=== PATIENT | female | born 1965 | race American Indian/Alaskan Native ===

== ENCOUNTER 2016-10-06 15:24 | Emergency (ER) | payer SELFPAY ==
[2016-10-06 18:07] LABS: Basophils % (Auto) 0.6 % (0.0-1.8); Eosinophils % (Auto) 2.2 % (0.0-4.3); Hematocrit 30.9 % (30.3-42.9); Hemoglobin 9.8 gm/dl (10.1-14.3); Mean Corpuscular HGB Conc 32 % (30-34); Mean Corpuscular Hemoglobin 27 pg (28-32); Mean Corpuscular Volume 84 fl (79-97); Platelet Count 294 K/mm3 (140-440); Red Blood Count 3.69 M/mm3 (3.65-5.03); Red Cell Distribution Width 13.8 % (13.2-15.2); White Blood Count 5.4 K/mm3 (4.5-11.0)
--- NOTE | 2016-10-06 20:41 | Emergency Department Report ---
ED ENT HPI - General Chief complaint: Nosebleed Stated complaint: NOSE BLEEDS Time Seen by Provider: 10/06/16 20:18 Source: patient Mode of arrival: Ambulatory Limitations: No Limitations - History of Present Illness Initial comments: 50-year-old female past medical history obesity, GERD, anemia chronic iron deficiency presents with complaint of 3 weeks of nasal congestion, nasal drainage, sinus congestion. Patient states that for the last 2 days she has had intermittent episodes of nose bleeding. Denies any fever or chills denies any sore throat no earache denies any headache denies any generalized weakness. Patient is awake alert and oriented 3 does not appear to be in acute distress speaking in full sentences no difficulty breathing no audible stridor or wheezing. Patient denies any chest pain palpitations nausea vomiting no shortness of breath no abdominal pain denies any dizziness or headache. Patient states that yesterday she had intermittent nosebleeding for a few hours. On my exam and during interview patient is not actively bleeding. She states that yesterday she use Afrin nasal spray 2 indicate her nosebleeding. Patient states she does not currently have primary doctor and has not been on any medicines otherwise other than TheraFlu and Excedrin which has been taking [id number] for her sinus congestion. MD complaint: epistaxis Onset/Timin -: days(s) Severity: moderate Associated Symptoms: rhinorrhea - Related Data Previous Rx's Medication Instructions Recorded Last Taken Type Amoxicillin/K Clav Tab [Augmentin 1 tab PO Q12HR #20 tab 10/06/16 Unknown Rx 875 mg] Azelastine 0.1% (Nf) [Astelin (Nf)] 137 mcg NS QDAY PRN #1 bottle 10/06/16 Unknown Rx Docusate Sodium [Colace CAP] 100 mg PO BID PRN #30 capsule 10/06/16 Unknown Rx Ferrous Sulfate [Feosol 325 MG tab] 325 mg PO QDAY #30 tablet 10/06/16 Unknown Rx Fluticasone [Flonase] 1 spray NS QDAY PRN #1 bottle 10/06/16 Unknown Rx Oxymetazoline 0.05% [Afrin] 1 spray NS PRN PRN #1 bottle 10/06/16 Unknown Rx Allergies Allergy/AdvReac Type Severity Reaction Status Date / Time No Known Allergies Allergy Verified 10/06/16 16:34 ED Dental HPI - General Chief complaint: Nosebleed Stated complaint: NOSE BLEEDS Time Seen by Provider: 10/06/16 20:18 Source: patient Mode of arrival: Ambulatory Limitations: No Limitations - Related Data Previous Rx's Medication Instructions Recorded Last Taken Type Amoxicillin/K Clav Tab [Augmentin 1 tab PO Q12HR #20 tab 10/06/16 Unknown Rx 875 mg] Azelastine 0.1% (Nf) [Astelin (Nf)] 137 mcg NS QDAY PRN #1 bottle 10/06/16 Unknown Rx Docusate Sodium [Colace CAP] 100 mg PO BID PRN #30 capsule 10/06/16 Unknown Rx Ferrous Sulfate [Feosol 325 MG tab] 325 mg PO QDAY #30 tablet 10/06/16 Unknown Rx Fluticasone [Flonase] 1 spray NS QDAY PRN #1 bottle 10/06/16 Unknown Rx Oxymetazoline 0.05% [Afrin] 1 spray NS PRN PRN #1 bottle 10/06/16 Unknown Rx Allergies Allergy/AdvReac Type Severity Reaction Status Date / Time No Known Allergies Allergy Verified 10/06/16 16:34 ED Review of Systems ROS: Stated complaint: NOSE BLEEDS Other details as noted in HPI Constitutional: denies: chills, fever Eyes: denies: eye pain, eye discharge, vision change ENT: epistaxis (patient states she has had intermittent nosebleeding and has experienced 3 weeks of persistent sinus congestion), congestion. denies: ear pain, throat pain Respiratory: denies: cough, shortness of breath, wheezing Cardiovascular: denies: chest pain, palpitations Endocrine: no symptoms reported Gastrointestinal: denies: abdominal pain, nausea, diarrhea Genitourinary: denies: urgency, dysuria, discharge Musculoskeletal: denies: back pain, joint swelling, arthralgia Skin: denies: rash, lesions Neurological: denies: headache, weakness, paresthesias Psychiatric: denies: anxiety, depression Hematological/Lymphatic: denies: easy bleeding, easy bruising ED Past Medical Hx - Past Medical History Hx Hypertension: No Hx CVA: No Hx Heart Attack/AMI: No Hx GERD: Yes Additional medical history: ANEMIA - Surgical History Additional Surgical History: hysterectomy, tumor from abd removed - Social History Smoking Status: Former Smoker Substance Use Type: None - Medications Home Medications: Home Medications Medication Instructions Recorded Confirmed Last Taken Type Amoxicillin/K Clav Tab [Augmentin 1 tab PO Q12HR #20 tab 10/06/16 Unknown Rx 875 mg] Azelastine 0.1% (Nf) [Astelin (Nf)] 137 mcg NS QDAY PRN #1 bottle 10/06/16 Unknown Rx Docusate Sodium [Colace CAP] 100 mg PO BID PRN #30 capsule 10/06/16 Unknown Rx Ferrous Sulfate [Feosol 325 MG tab] 325 mg PO QDAY #30 tablet 10/06/16 Unknown Rx Fluticasone [Flonase] 1 spray NS QDAY PRN #1 bottle 10/06/16 Unknown Rx Oxymetazoline 0.05% [Afrin] 1 spray NS PRN PRN #1 bottle 10/06/16 Unknown Rx ED Physical Exam - General Limitations: No Limitations General appearance: alert, in no apparent distress - Head Head exam: Present: atraumatic, normocephalic - Eye Eye exam: Present: normal appearance, PERRL, EOMI - ENT ENT exam: Present: mucous membranes moist - Expanded ENT Exam Expanded Ear exam: Present: normal external inspection Mouth exam: Present: normal external inspection Teeth exam: Present: normal inspection Throat exam: Positive: normal inspection - Neck Neck exam: Present: normal inspection - Respiratory Respiratory exam: Present: normal lung sounds bilaterally. Absent: respiratory distress - Cardiovascular Cardiovascular Exam: Present: regular rate, normal rhythm. Absent: systolic murmur, diastolic murmur, rubs, gallop - GI/Abdominal GI/Abdominal exam: Present: soft, normal bowel sounds - Extremities Exam Extremities exam: Present: normal inspection - Back Exam Back exam: Present: normal inspection - Neurological Exam Neurological exam: Present: alert, oriented X3 - Psychiatric Psychiatric exam: Present: normal affect, normal mood - Skin Skin exam: Present: warm, dry, intact, normal color. Absent: rash ED Course Vital Signs 10/06/16 16:30 Temperature 97.7 F Pulse Rate 78 Respiratory 18 Rate Blood Pressure 148/92 O2 Sat by Pulse 100 Oximetry ED Medical Decision Making - Lab Data Result diagrams: 10/06/16 17:18 - Medical Decision Making A/P: Epistaxis, sinusitis 1-Afrin, azelastine nasal spray, augmentin 10 day course, flonase 2- pt has no current nasal hemorrhages, no clots in bilateral nares or oropharnynx on exam, only visible mild swelling of nasal passages, no intranasal septal wall hematomas on exam. No current indication for nasal packing 3-follow-up with primary care and ENT 4-patient is mildly anemic on CBC, no signs of active symptomatic anemia, will restart on iron supplementation, will give Colace to mitigate any constipation 5-patient has slightly elevated pressure, denies any headache no blurry vision no nausea no vomiting no chest pain no shortness of breath no palpitations no abdominal pain. Patient has asymptomatic high blood pressure as per ACEP guidelines no need to currently medicate patient's, I will give patient primary care follow-up. Patient states that she has checked her blood pressure several times over the last month and it has been in the 120s to 130 systolic qand 80s diastolic. Critical care attestation.: If time is entered above; I have spent that time in minutes in the direct care of this critically ill patient, excluding procedure time. ED Disposition Clinical Impression: Epistaxis Sinusitis Qualifiers: Sinusitis location: frontal Chronicity: acute Recurrence: recurrent Qualified Code(s): J01.11 - Acute recurrent frontal sinusitis Disposition: DISCHARGED TO HOME OR SELFCARE Is pt being admited?: No Does the pt Need Aspirin: No Condition: Stable Instructions: Epistaxis (ED), Sinusitis (ED) Additional Instructions: [email or web address] Prescriptions: Amoxicillin/K Clav Tab [Augmentin 875 mg] 1 tab PO Q12HR #20 tab Azelastine 0.1% (Nf) [Astelin (Nf)] 137 mcg NS QDAY PRN #1 bottle PRN Reason: Congestion Docusate Sodium [Colace CAP] 100 mg PO BID PRN #30 capsule PRN Reason: Constipation Ferrous Sulfate [Feosol 325 MG tab] 325 mg PO QDAY #30 tablet Fluticasone [Flonase] 1 spray NS QDAY PRN #1 bottle PRN Reason: Congestion Oxymetazoline 0.05% [Afrin] 1 spray NS PRN PRN #1 bottle PRN Reason: Nasal Congestion Referrals: BARB MELARA MD [Staff Physician] - 3-5 Days [facility] [Provider Group] - 3-5 Days OSMEL OCHOA MD [Staff Physician] - 3-5 Days BON OZUNA PA [Physician Foil Spinner] - 3-5 Days Forms: Accompanied Note, Work/School Release Form(ED) Time of Disposition: 20:47
[2016-10-06 21:05] VITALS: BP 162/91
== END 2016-10-06 21:14 | disposition home or self-care (01) ==
LOC: ED 15:24
DX: J01.11 Acute recurrent frontal sinusitis (principal); R04.0 Epistaxis; K21.9 Gastro-esophageal reflux disease without esophagitis; Z87.891 Personal history of nicotine dependence
CPT/HCPCS: 36415; 85025; 99283